=== PATIENT | female | born 1955 | race Caucasian/White ===

== ENCOUNTER 2018-11-06 11:34 | Emergency (ER) | payer OTHER ==
[~2018-11-06] VITALS: Ht 162.6 cm; Wt 92.1 kg
[~2018-11-06 11:34] MED LIST: ALLEGRA; ASCO500 PO; CALCAVITD PO; CELE100 PO; CRANBERRY PO; CRUTCH2 USE; DESV50 PO; EFFEXOR; FEXO60 PO; HYDACE5 PO; MULVITMINF PO; PSEU120ER PO; RANI150 PO; RISP.5 PO; TOLT4; TOLT4 PO
[2018-11-06 13:24] LABS: Hematocrit 32.1 % (33.0-51.0); Hemoglobin 10.2 g/dL (11.5-16.0); Mean Corpuscular HGB 27.6 pg (26.0-34.0); Mean Corpuscular HGB Conc 31.8 g/dL (31.5-36.5); Mean Corpuscular Volume 87 fL (80-100); Mean Platelet Volume 10.1 fL (9.1-12.4); Platelet Count 251 K/mm3 (150-400); RDW Coefficient Variation 14.5 % (11.7-14.2); RDW Standard Deviation 46.4 fL (35.1-46.3); Red Blood Cell Count 3.69 M/mm3 (3.80-5.20); White Blood Cell Count 21.22 K/mm3 (4.00-11.30)
[2018-11-06 13:42] LABS: BAND PERCENT MAN 11 % (0-8); BASOPHILS PERCENT MAN 0 % (0-2); EOSINOPHILS PERCENT MAN 0 % (0-6); LYMPHOCYTES ABSOLUTE MAN 0.63 K/mm3 (0.84-5.20); LYMPHOCYTES PERCENT MAN 3 % (21-46); MONOCYTES ABSOLUTE MAN 1.48 K/mm3 (0.16-1.47); MONOCYTES PERCENT MAN 7 % (4-13); NEUTROPHILS ABSOLUTE MAN 19.09 K/mm3 (1.96-9.15); SEG NEUTROPHILS PERCENT MAN 79 % (41-73); TOTAL CELLS COUNTED 100
[2018-11-06] MEDS ORDERED: Omeprazole20 M1 (16:04)
[2018-11-06] MEDS ORDERED: TOLT4 PO (16:04)
[2018-11-06] MEDS ORDERED: ZOLP10 PO (16:05)
[2018-11-06] MEDS ORDERED: BUDE10.22 INH (16:06)
[2018-11-06] MEDS ORDERED: Advair Hfa 230-12 GM (16:06)
[2018-11-06 16:24] LABS: Anion Gap 9 mmol/L (6-16); Blood Urea Nitrogen 9 mg/dL (8-24); Bun/Creatinine Ratio 12.8 (12.0-20.0); CO2, Blood 22 mmol/L (21-32); Calcium, Blood 8.8 mg/dL (8.5-10.1); Chloride, Blood 98 mmol/L (98-108); Creatinine, Blood 0.71 mg/dL (0.40-1.00); Glomerular Filtration Rate >60 (60-); Glucose, Blood 127 mg/dL (70-99); Sodium, Blood 129 mmol/L (136-145)
== END 2018-11-06 19:41 | disposition home or self-care (01) ==
LOC: ER 11:34
PROVIDERS: Emergency Medicine; Physician Assistant
DX: A41.9 Sepsis, unspecified organism (principal); M72.9 Fibroblastic disorder, unspecified; E11.9 Type 2 diabetes mellitus without complications; E78.00 Pure hypercholesterolemia, unspecified; Z79.899 Other long term (current) drug therapy
CPT/HCPCS: 36415; 72193; 76882; 80048; 83605; 85025; 96365; 96367; 96375; 99284-25; J1170; J2543; J3010; J3370; J7030; J7050; Q9967

== ENCOUNTER 2021-05-20 05:54 | Day surgery (SDC) | payer OTHER ==
[~2021-05-20] VITALS: Ht 162.6 cm; Wt 111.6 kg
[~2021-05-20 05:54] MED LIST changes: +AMBIEN10 MG PO; +Advair Hfa 230-12 GM; +BUDE10.22 INH; +BUPR150ER PO; +CELE200 PO; +CYCL10 PO; +Cranberry300 MG PO; +Detrol LA2 MG PO; +FENO145 PO; +Flonase 0.05% N16 GM; +Norco 10-325 T1 EACH PO; +OMEP20ER PO; +Omeprazole20 M1; +PSEUDOEPHEDRINE30 M4 PO; +RISP2 PO; +VIIBRYD40 MG PO; +VITAMIN D310 MC4 PO; +ZOLP10 PO
--- NOTE | 2021-05-20 06:59 | NUR ---
Ambulatory in Day Surgery Surgical site prepped with 2% Chlorhexidine cloth wipe. History, Chart, Medications and Allergies reviewed before start of procedure. Patient confirms NPO status and agrees with scheduled surgery. Pre-Op teaching done. Pt verbalizes understanding. Patient States Post-Procedure ride home has been arranged. Patient reports completing Chlorhexadine shower X2 prior to admission to hospital.
--- NOTE | 2021-05-20 08:16 | NUR ---
05/20/[address] ADMINISTERED [id number] (12 MLS) FOR THE INTRAOPERATIVE CHOLANGIOGRAM.
--- NOTE | 2021-05-20 09:13 | NUR ---
PT SLEEPY, BUT AWAKE. DENIES N/V. DECLINES ANYTHING FOR PAIN AT THIS TIME. RESTING. DECLINES SIPS OF WATER.
--- NOTE | 2021-05-20 09:33 | NUR ---
STERI STRIPS INTACT, SMALL SPOT OF BLOOD NOTED WHEN TOUCHED.
--- NOTE | 2021-05-20 10:25 | NUR ---
Patient up to Ambulate independently. Gait steady. Patient States Post-Procedure ride home has been arranged. Discharge instructions reviewed with patient. Patient verbalizes understanding. Copy given to patient to take home. Dressing to procedure site clean, dry, intact with no visible drainage, swelling, erythema or bruising noted. Discharged via wheelchair to private car for ride home.
== END 2021-05-20 10:25 | disposition home or self-care (01) ==
LOC: ORSCMMR 05:54 → ORD 07:30 → ORSCMMR 10:25
PROVIDERS: Surgery
PROC: 0FT44ZZ Resection of Gallbladder, Percutaneous Endoscopic Approach (ICD-10-PCS; principal; 2021-05-20 07:30)
PROC: BF031ZZ Plain Radiography of Gallbladder and Bile Ducts using Low Osmolar Contrast (ICD-10-PCS; principal; 2021-05-20 07:30)
DX: K80.10 Calculus of gallbladder with chronic cholecystitis without obstruction (principal); F32.9 Major depressive disorder, single episode, unspecified; K21.9 Gastro-esophageal reflux disease without esophagitis; J45.909 Unspecified asthma, uncomplicated; G47.33 Obstructive sleep apnea (adult) (pediatric); E66.01 Morbid (severe) obesity due to excess calories; Z68.41 Body mass index [BMI] 40.0-44.9, adult; E11.9 Type 2 diabetes mellitus without complications; Z79.899 Other long term (current) drug therapy
CPT/HCPCS: 74300; 82947; 88304; A9270; C1729; J0330; J0690; J1100; J1885; J2405; J2550; J2704; J3010; J7120

== ENCOUNTER → 2025-04-17 | Outpatient (CLI) | payer MEDICARE, OTHER | LOC: LAB 17:26 → LAB SHORT 17:26 | DX: R30.0 Dysuria (principal) | CPT/HCPCS: 87077; 87086; 87186 ==

== ENCOUNTER → 2025-04-17 | Outpatient (CLI) | payer MEDICARE, OTHER | END | disposition home or self-care (01) | LOC: LAB SHORT 19:12 → LAB 19:12 | DX: R30.0 Dysuria (principal) | CPT/HCPCS: 87077; 87086; 87186 ==

== ENCOUNTER 2025-10-29 22:12 | Inpatient (IN) | payer MEDICARE, OTHER ==
[~2025-10-29] VITALS: Ht 162.6 cm; Wt 95.7 kg
[2025-10-29 22:34] LABS: BASOPHILS ABSOLUTE AUTO 0.07 K/mm3 (0.00-0.23); BASOPHILS PERCENT AUTO 1 % (0-2); EOSINOPHILS ABSOLUTE AUTO 0.16 K/mm3 (0.00-0.68); EOSINOPHILS PERCENT AUTO 2 % (0-6); Hematocrit 38.6 % (33.0-51.0); Hemoglobin 11.7 g/dL (11.5-16.0); IMMATURE GRAN ABSOLUTE AUTO 0.02 K/mm3 (0.00-0.10); IMMATURE GRAN PERCENT AUTO 0 % (0-1); LYMPHOCYTES ABSOLUTE AUTO 4.19 K/mm3 (0.84-5.20); LYMPHOCYTES PERCENT AUTO 56 % (21-46); MONOCYTES ABSOLUTE AUTO 0.68 K/mm3 (0.16-1.47); MONOCYTES PERCENT AUTO 9 % (4-13); Mean Corpuscular HGB Conc 30.3 g/dL (31.5-36.5); Mean Corpuscular Volume 71 fL (80-100); NEUTROPHILS ABSOLUTE AUTO 2.32 K/mm3 (1.96-9.15); NEUTROPHILS PERCENT AUTO 31 % (41-73); NRBC ABSOLUTE 0.00 K/mm3 (0.00-0.02); NRBC Auto 0.0 /100 WBC (0.0-0.2); Platelet Count 485 K/mm3 (150-400); RDW Coefficient Variation 18.4 % (11.7-14.2); RDW Standard Deviation 45.1 fL (35.1-46.3)
[2025-10-29 23:03] LABS: Alanine Aminotransfer (ALT/SGP 30.0 U/L (12-78); Albumin, Blood 4.0 g/dL (3.4-5.0); Albumin/Globulin Ratio 1.1 (0.8-1.8); Anion Gap 9.0 mmol/L (3-11); Aspartate Aminotrans (AST/SGOT 16.0 U/L (12-37); Bilirubin, Total 0.2 mg/dL (0.1-1.0); Blood Urea Nitrogen 12.0 mg/dL (8-24); CO2, Blood 23.0 mmol/L (21-32); Calcium, Blood 8.9 mg/dL (8.5-10.1); Chloride, Blood 111.0 mmol/L (98-108); Creatinine, Blood 0.72 mg/dL (0.40-1.00); Globulin, Blood 3.5 g/dL (2.2-4.0); Glucose, Blood 100.0 mg/dL (70-99); Potassium, Blood 3.3 mmol/L (3.5-5.5); Sodium, Blood 140.0 mmol/L (136-145); Total Protein, Blood 7.5 g/dL (6.4-8.2)
[2025-10-29] MEDS ORDERED: Diltiazem HCl 5 MG / ML 5ML Vial IV ONE (23:35)
[2025-10-30] MEDS ORDERED: FLU VACC TS2025(65UP)/MF59C/PF 45 MCG/0.5 ML SYRINGE IM SCH (00:55)
[2025-10-30] MEDS ORDERED: Ondansetron HCl 2 MG / ML 2ML Vial IV PRN (00:55)
[2025-10-30 01:09] LABS: Magnesium, Blood 2.2 mg/dL (1.6-2.4)
[2025-10-30 02:34] VITALS: BP 122/76
[2025-10-30 03:32] VITALS: BP 129/82
[2025-10-30] MEDS ORDERED: MOUNJARO15 MG/0.5 SC (03:36)
[2025-10-30 03:52] LABS: BASOPHILS ABSOLUTE AUTO 0.06 K/mm3 (0.00-0.23); BASOPHILS PERCENT AUTO 1 % (0-2); EOSINOPHILS ABSOLUTE AUTO 0.14 K/mm3 (0.00-0.68); EOSINOPHILS PERCENT AUTO 2 % (0-6); Hematocrit 36.5 % (33.0-51.0); Hemoglobin 10.9 g/dL (11.5-16.0); IMMATURE GRAN ABSOLUTE AUTO 0.01 K/mm3 (0.00-0.10); IMMATURE GRAN PERCENT AUTO 0 % (0-1); LYMPHOCYTES ABSOLUTE AUTO 2.90 K/mm3 (0.84-5.20); LYMPHOCYTES PERCENT AUTO 45 % (21-46); MONOCYTES ABSOLUTE AUTO 0.54 K/mm3 (0.16-1.47); MONOCYTES PERCENT AUTO 8 % (4-13); Mean Corpuscular HGB Conc 29.9 g/dL (31.5-36.5); Mean Corpuscular Volume 72 fL (80-100); NEUTROPHILS ABSOLUTE AUTO 2.86 K/mm3 (1.96-9.15); NEUTROPHILS PERCENT AUTO 44 % (41-73); NRBC ABSOLUTE 0.00 K/mm3 (0.00-0.02); NRBC Auto 0.0 /100 WBC (0.0-0.2); Platelet Count 431 K/mm3 (150-400); RDW Coefficient Variation 18.6 % (11.7-14.2); RDW Standard Deviation 47.0 fL (35.1-46.3)
[2025-10-30] MEDS ORDERED: ADVAIR HFA 230-28 GM INH (04:02)
[2025-10-30] MEDS ORDERED: ALBU90OI INH (04:03)
[2025-10-30] MEDS ORDERED: DOXE10 PO (04:05)
[2025-10-30] MEDS ORDERED: ERGO50000 PO (04:06)
[2025-10-30] MEDS ORDERED: GABA300 PO (05:32)
[2025-10-30] MEDS ORDERED: B-COMPLEX WITH1 EAC2 PO (05:33)
[2025-10-30] MEDS ORDERED: ZINC15 (05:33)
[2025-10-30] MEDS ORDERED: MAGNESIUM OXID500 MG PO (05:34)
[2025-10-30] MEDS ORDERED: CRANBERRY500 M1 PO (05:35)
[2025-10-30] MEDS ORDERED: Acetaminophen650 M1 PO (05:36)
--- NOTE | 2025-10-30 06:01 | NUR ---
ADMIT NOTE/ SHIFT SUMMARY REPORT RECEIVED BY THIS RN FROM ER BERTHA @ APPROX 0126 PT ARRIVED TO PCU 20 @ 0200 APPROX AND SELF TRANSFERED TO PCU BED. PT A&O X 4, ABLE TO MAKE NEEDS KNOWN, MOVING EXPERIMENTS WITH PURPOSE, SBA TO BRP, CALLS APPROPRIATELY, REPOSITIONING SELF IN BED. SPO2 GREATER THAN 92% RA, NO SIGNS OF RESPIRATORY DISTRESS NOTED. CONTINUOUS TELE MONITORING, SINUS HR 80-90 S, BP STABLE WITH MAP GREATER THAN 65, CAP REFILL WNL, PULSES PRESENT T/O, PT DENIES CHEST P/P. BOWEL TONES PRESENT IN ALL 4Q, PT DENIES FEELINGS OF CONSTIPATION. BED LOWEST POSITION, CALL LIGHT IN REACH, AWAITING TO GIVE REPORT TO ONCOMING RN.
[2025-10-30 06:30] LABS: Alanine Aminotransfer (ALT/SGP 28.0 U/L (12-78); Albumin, Blood 3.7 g/dL (3.4-5.0); Albumin/Globulin Ratio 1.1 (0.8-1.8); Anion Gap 11.0 mmol/L (3-11); Aspartate Aminotrans (AST/SGOT 13.0 U/L (12-37); Bilirubin, Total 0.2 mg/dL (0.1-1.0); Blood Urea Nitrogen 11.0 mg/dL (8-24); CO2, Blood 21.0 mmol/L (21-32); Calcium, Blood 8.5 mg/dL (8.5-10.1); Chloride, Blood 108.0 mmol/L (98-108); Creatinine, Blood 0.68 mg/dL (0.40-1.00); Ferritin, Serum 4.0 ng/mL (8-252); Globulin, Blood 3.3 g/dL (2.2-4.0); Glucose, Blood 114.0 mg/dL (70-99); Magnesium, Blood 2.3 mg/dL (1.6-2.4); Potassium, Blood 3.8 mmol/L (3.5-5.5); Sodium, Blood 136.0 mmol/L (136-145); Total Iron Binding Capacity 532.0 ug/dL (250-450); Total Protein, Blood 7.0 g/dL (6.4-8.2)
[2025-10-30] MEDS ORDERED: Potassium Chl 20MEQ/Water100ML 100 ML IV STA (07:13)
[2025-10-30] MEDS ORDERED: Iron Dextran 50 MG / ML 2ML Vial IV ONE (07:15)
[2025-10-30 07:37] VITALS: BP 131/67
[2025-10-30] MEDS ORDERED: GEMFIBROZIL600 MG PO (07:51)
[2025-10-30] MEDS ORDERED: Albuterol HFA200 ACT/6.7 GM INH INH PRN (08:05)
[2025-10-30] MEDS ORDERED: Formoterol/Mometasone MDI 5/200 mcg 13 GM INH SCH (08:10)
[2025-10-30] MEDS ORDERED: Vitamin B Complex 1 EA Softgel PO SCH (09:00)
[2025-10-30] MEDS ORDERED: Cholecalciferol 1000 Unit Tablet (=25MCG) PO SCH (09:00)
[2025-10-30] MEDS ORDERED: Zinc Sulfate 220 MG Cap (Provides 50MG) PO SCH (09:00)
[2025-10-30] MEDS ORDERED: Iron Dextran 975 MG in NS 250 ML IV ONE (09:00)
[2025-10-30] MEDS ORDERED: Enoxaparin 40 MG/0.4 ML SYR SC SCH (09:00)
[2025-10-30] MEDS ORDERED: VILAZODONE 40 MG PO SCH (09:00)
[2025-10-30] MEDS ORDERED: NS 250 ML IV PRN (09:35)
[2025-10-30 11:30] VITALS: BP 124/64
--- NOTE | 2025-10-30 11:40 | NUR ---
Upon receiving a referral for spiritual care, I visited the patient. She is lying in bed and alert. She has a friend, Jeane, bedside. The patient tells kourtney about her medical issues and the events that led to her admission to the hospital. She shares about the of her spouse and about the room mate she has who is her friends mom who just also experienced the of a spouse. She talks about her two dogs, her fears and her hopes. I provided grief support, anxiety containment, encouragement and prayer. The patient and Jeane responded well and showed signs of greater peace. I will continue to remain available to patient and family.
[2025-10-30] MEDS ORDERED: ELIQUIS5 M2 PO (13:06)
[2025-10-30] MEDS ORDERED: DILT30 PO (14:53)
--- NOTE | 2025-10-30 14:57 | NUR ---
DISCHARGE: PT HAS BEEN A&Ox4, INDEPENDENT IN ROOM, ABLE TO MAKE NEEDS KNOWN. PT DENIES SOB/CP. NO ADVERSE CARDIAC EVENTS SINCE ADMISSION TO UNIT. PT HAS BEEN CLEARED FOR DISCHARGE HOME. DC INSTRUCTIONS AND PAPERWORK PROVIDED, PT V/U. PT DRESSES SELF INDEPENDENTLY AND HAS BEEN ESCORTED FROM UNIT VIA W/C W/OUT INCIDENT.
== END 2025-10-30 14:56 | disposition home or self-care (01) | DRG 310 ==
LOC: ER 22:12 → PCU 10-30 00:50 → ERHOLD 10-30 00:50 → PCU 10-30 02:01
PROVIDERS: Emergency Medicine; ADMIT Student in an Organized Health Care Education/Training Program
DX: I48.91 Unspecified atrial fibrillation (principal); E11.40 Type 2 diabetes mellitus with diabetic neuropathy, unspecified; E87.6 Hypokalemia; D50.9 Iron deficiency anemia, unspecified; F31.9 Bipolar disorder, unspecified; J44.9 Chronic obstructive pulmonary disease, unspecified; M62.838 Other muscle spasm; E78.00 Pure hypercholesterolemia, unspecified; K21.9 Gastro-esophageal reflux disease without esophagitis; N32.81 Overactive bladder; Z79.891 Long term (current) use of opiate analgesic; Z98.84 Bariatric surgery status; Z87.891 Personal history of nicotine dependence; Z79.1 Long term (current) use of non-steroidal anti-inflammatories (NSAID)
CPT/HCPCS: 36415; 71046; 80053; 82728; 82947; 83036; 83540; 83550; 83735; 84484; 85025; 93005; 93010; 93306; 96374; 99285-25; A9270; J1750; J3480; J7050